=== PATIENT | male | born 1985 | race Caucasian/White ===

== ENCOUNTER 2023-02-24 10:51 | Emergency (ER) | payer MEDICARE, MEDICAID ==
[2023-02-24] MEDS ORDERED: Ondansetron 4 MG Tab.DIS PO ONE (11:25)
[2023-02-24 11:46] LABS: BASOPHILS ABSOLUTE AUTO 0.03 K/uL (0.00-0.20); BASOPHILS PERCENT AUTO 0.6 % (0.0-2.0); EOSINOPHILS ABSOLUTE AUTO 0.01 K/uL (0.00-0.50); EOSINOPHILS PERCENT AUTO 0.2 % (0.0-5.0); HEMATOCRIT 45.8 % (39.0-49.0); HEMOGLOBIN 15.2 g/dL (13.1-16.8); LYMPHOCYTES ABSOLUTE AUTO 1.28 K/uL (0.50-3.50); LYMPHOCYTES PERCENT AUTO 24.2 % (10.0-50.0); MEAN CORPUSCULAR HEMOGLOBIN 30.3 pg (28.2-33.3); MEAN CORPUSCULAR HGB CONC 33.2 g/dL (31.7-36.0); MEAN CORPUSCULAR VOLUME 91.2 fL (84.0-98.0); MONOCYTES ABSOLUTE AUTO 0.79 K/uL (0.00-1.00); NEUTROPHILS ABSOLUTE AUTO 3.17 K/uL (1.40-7.00); PLATELET COUNT,PLT 141 K/uL (150-350); RED BLOOD CELL COUNT 5.02 M/uL (4.33-5.41); RED CELL DISTRIBUTION WIDTH 13.6 % (11.2-14.1); WHITE BLOOD CELL COUNT,WBC 5.3 K/uL (4.0-10.2)
[2023-02-24 12:06] LABS: ALBUMIN 3.8 g/dL (3.4-5.0); ANION GAP 11.1 meq/L (7-15); BILIRUBIN TOTAL 1.7 mg/dL (0.2-1.0); CALCIUM 8.9 mg/dL (8.5-10.1); CARBON DIOXIDE,CO2 25.9 mmol/L (21.0-32.0); CREATININE 1.39 mg/dL (0.51-1.17); EST CRCL DRUG DOSING (CG) 62.68 mL/min; POTASSIUM,K 3.9 mmol/L (3.5-5.1); PROTEIN TOTAL,TP 7.7 g/dL (6.4-8.2)
[2023-02-24 12:11] LABS: CORONAVIRUS COVID-19 NAA POSITIVE (NEGATIVE); INFLUENZA A NAA NEGATIVE (NEGATIVE); INFLUENZA B NAA NEGATIVE (NEGATIVE); RESPIRATORY SYNCYTIAL VIR NAA NEGATIVE (NEGATIVE)
[2023-02-24 12:34] LABS: APPEARANCE,URINE CLEAR; BILIRUBIN,URINE NEGATIVE (NEGATIVE); COLOR,URINE YELLOW; GLUCOSE,URINE NEGATIVE (NEGATIVE); KETONES,URINE NEGATIVE (NEGATIVE); LEUKOCYTE ESTERASE,URINE TRACE (NEGATIVE); NITRITE,URINE NEGATIVE (NEGATIVE); OCCULT BLOOD,URINE NEGATIVE (NEGATIVE); PROTEIN,URINE NEGATIVE (NEGATIVE); UROBILINOGEN,URINE 0.2 E.U./dL (0.2-1.0)
[2023-02-24 12:46] LABS: BACTERIA,URINE RARE /HPF (NONE TO FEW); EPITHELIAL CELLS,URINE OCCASIONAL /LPF; HYALINE CASTS,URINE RARE; MUCUS,URINE FEW /LPF (NEGATIVE); RBC,URINE 0-5 /HPF
[2023-02-24] MEDS ORDERED: Take Home: Ondansetron 4 MG Tab.DIS, 5 Tab Pack PO ONE (13:15)
[2023-02-24 13:59] VITALS: BP 103/64; PULSE 58
== END 2023-02-24 13:19 | disposition home or self-care (01) ==
LOC: LL.ED 10:51
DX: U07.1 COVID-19 (principal); K21.9 Gastro-esophageal reflux disease without esophagitis; Z79.899 Other long term (current) drug therapy
CPT/HCPCS: 0241U; 36415; 74022; 80053; 81001; 83605; 83880; 85025; 87086; 99283; A9270; Q0162; 87088; 87186